=== PATIENT | male | born 1960 | race Hispanic/Latino ===

== ENCOUNTER 2024-10-15 09:50 | Day surgery (SDC) | payer OTHER ==
[2024-10-09 16:42] VITALS: BP 146/77
[~2024-10-15] VITALS: Ht 177.8 cm; Wt 100.0 kg
[~2024-10-15 09:50] MED LIST: ALTOPREV40 MG PO; FARXIGA10 MG PO; FISH OIL 1,0001 EAC6 PO; LISINOPRIL-HCT1 EAC1 PO; TRULICITY0.75 MG/0. SQ
[2024-10-15] MEDS ORDERED: SODIUM CARBONATE1 GM MISC (10:15)
[2024-10-15] MEDS ORDERED: FLOMAX0.4 MG PO (10:16)
[2024-10-15 10:25] VITALS: BP 138/74
[2024-10-15] MEDS ORDERED: GABAPENTIN600 MG PO (10:28)
[2024-10-15 10:36] LABS: BASOPHILS 0.4 % (0-2); BASOPHILS, ABSOLUTE 0 %; EOSINOPHILS, ABSOLUTE 0.1; HEMOGLOBIN 11.6 g/dL (12.0-18.0); LYMPHOCYTES 27.7 % (24-44); LYMPHOCYTES, ABSOLUTE 1.6; MCH 31.8 (27-36); MCV 93.6 fl (81-99); MONOCYTES 5.7 % (0-12); MONOCYTES, ABSOLUTE 0.3; NEUTROPHILS 64.2 % (39-80); NEUTROPHILS, ABSOLUTE 3.7; PLATELET COUNT 249 K/uL (140-440); RBC 3.63 M/ul (4.3-5.7); RDW 13.7 (10.5-15.0)
[2024-10-15 10:52] LABS: ALBUMIN 4.2 g/dL (3.4-5.0); ALBUMIN/GLOBULIN RATIO 1.17 (1.1-2.4); ANION GAP 12.9 (7-21); BILIRUBIN, TOTAL 0.5 mg/dL (0.2-1.0); BUN/CREATININE RATIO 17.47 (6.0-28.6); CALCIUM 9.3 mg/dL (8.5-10.1); CREATININE, SERUM 2.46 mg/dL (0.70-1.30); POTASSIUM 4.9 mmol/L (3.5-5.1); PROTEIN, TOTAL 7.8 g/dL (6.4-8.2)
[2024-10-15] MEDS ORDERED: propofoL 200 MG/20 ML VIAL ONE ×2 (11:59→12:06)
[2024-10-15] MEDS ORDERED: LIDOCAINE HCL 2% 5 ML SDV ONE (11:59)
[2024-10-15 12:52] VITALS: BP 114/63
--- NOTE | 2024-10-15 13:24 | NUR ---
10/15/24 1324 Lisa Rivas 1222 PT ARRIVED IN PACU PRONE WITH NO C/O'S. 1245 REPOSITIONED TO BACK AND SITTING UP IN BED SIPPING ON CRANBERRY JUICE. NO C/O'S. 1300 GETTING DRESSED WITH STAND BY ASSIST. 1305 DC INSTRUCTIONS GIVEN. LAO SPEAKING EMISSIONS ENGINEER USED TO VERIFY INSTRUCTIONS. NO QUESTIONS. LEFT VIA W/C.
[2024-10-16 10:56] LABS: KAPPA QNT FREE LIGHT CHAINS 68.51 mg/L (3.30-19.40); KAPPA/LAMBDA FREE LIGHT CH RAT 1.56 (0.26-1.65); LAMBDA QNT FREE LIGHT CHAINS 43.95 mg/L (5.71-26.30)
[2024-10-16 14:25] LABS: IMMUNOGLOBULIN A 405 mg/dL (68-408); IMMUNOGLOBULIN G 1069 mg/dL (768-1632); IMMUNOGLOBULIN M 65 mg/dL (35-263)
--- NOTE | 2024-10-16 22:33 | EKG ---
[facility] [address] [facility] [place], [place] [address] Signed Sinus bradycardia Otherwise normal ECG Confirmed by Parag Izaguirre MD ([id number]) on 10/16/2024 10:33:34 PM Electronically Signed By: PARAG IZAGUIRRE MD 10/16/242232 PATIENT NAME: HANNAH CAAL LA PAZANTONY Electrocardiogram DATE OF : 56 PHYSICIAN: PARAG IZAGUIRRE MD REPORT #: [id number] REPORT IS CONFIDENTIAL AND NOT TO BE RELEASED WITHOUT AUTHORIZATION
[2024-10-20 11:05] LABS: ALBUMIN 4.26 g/dL (3.75-5.01); ALPHA 1 GLOBULIN 0.24 g/dL (0.19-0.46); ALPHA 2 GLOBULIN 0.77 g/dL (0.48-1.05); BETA GLOBULIN 0.84 g/dL (0.48-1.10); IMMUNOFIXATION REFLEX IFE Done (()); TOTAL PROTEIN,SERUM 7.4 g/dL (6.3-8.2)
--- NOTE | 2024-10-27 15:34 | PATH ---
[facility] [address] [place], [place] [address] Signed THIS IS AN ADDENDUM REPORT SPECIMEN(S): A BONE MARROW - CORE SPECIMEN(S): B BONE MARROW - ASPIRATION SPECIMEN(S): C FLOW CYTOMETRY, BM EDTA1 CLINICAL HISTORY: 64-year-old male with anemia, chronic kidney disease, and SPEP + for IgA-kappa DIAGNOSIS SUMMARY: Peripheral blood - Normocytic anemia. - No circulating blasts or plasma cells are identified. Bone marrow biopsy and aspiration: - Hypercellular marrow, 50%, with less than 1% blasts. - Trilineage hematopoiesis with erythroid hyperplasia with no significant dyspoiesis. - 3% kappa restricted plasma cells consistent with plasma cell neoplasm, favor MGUS. - Congo Red stain is negative for amyloid. - See diagnostic comment. DIAGNOSTIC COMMENT: 3% kappa restricted plasma cells are present consistent with a plasma cell neoplasm. Correlation with laboratory, imaging, and clinical findings is required to accurately subclassify the plasma cell neoplasm. However, a MGUS is favored. The FISH panel for myeloma is abnormal. Chromosome analysis is pending at the time of this report. HISTORICAL SUMMARY: 64 yo male with no prior hematology case history in the [employer] database. He presents with CKD and a SPEP positive for IgA-Jonesburg M-spike (level reportedly 0.3 gm/dl). The bone marrow is to evaluate for a possible plasma cell neoplasm. PERIPHERAL BLOOD: HEMOGRAM (10/15/2024): WBC 5.8 K/ul, RBC 3.63 M/ul, HGB 11.6 g/dl, HCT 34.0%, MCV 93.6 fl, MCH 31.8 pg, MCHC 34.0 g/dl, RDW 13.7%, PLT 249 K/ul, MPV 8.0 fl. AUTOMATED DIFFERENTIAL COUNT: Neutrophils 64.2%, lymphocytes 27.7%, monocytes 5.7%, eosinophils 2.0%, basophils 0.4%. The red blood cells are normocytic and normochromic with minimal PATIENT NAME: ANTONY MEAD PATHOLOGY DATE OF : 56 REPORT #: [id number] PHYSICIAN: TED OLIVEIRA PCP: IMELDA COON MD REPORT IS CONFIDENTIAL AND NOT TO BE RELEASED WITHOUT AUTHORIZATION [facility] [address] [place], [place] [address] Signed aniso-poikilocytosis. The neutrophils are unremarkable. Lymphocytes are composed of small mature appearing forms. Platelets appear normal in number and morphology with no platelet clumping or RBC microangiopathic effect identified. No blasts are identified. BONE MARROW: ASPIRATE SMEARS/TOUCH IMPRINT: The aspirate smears are adequate for evaluation. Scattered erythroid precursors show adequate maturation with essentially normal morphology. The myeloid precursors show full maturation with unremarkable morphology. There is no increase in blasts. Megakaryocytes are identified with a normal morphology. BONE MARROW DIFFERENTIAL COUNT (300 cells): Blasts less than 1%. promyelocytes less than 1%, myelocytes 5%, metamyelocytes/bands/segs 25%, erythroid precursors 45%, lymphocytes 11%, monocytes 4%, eosinophils 7%, plasma cells 3%. M:E ratio: Inverted at 0.8:1 BONE MARROW CORE BIOPSY/ASPIRATE CLOT/CELL BLOCK: The aspirate clot section and the core biopsy are adequate for evaluation. The core biopsy demonstrates unremarkable trabecular bone. The cellularity is increased for age, estimated at 50%. The erythroid precursors are increased in numbers with essentially unremarkable maturation. The myeloid precursors are unremarkable with no significant dyspoiesis. Plasma cells are mildly increased at 3%. Blasts are not increased. Megakaryocytes appear normal in number and in morphology. No granulomas, atypical lymphoid aggregates or foreign malignant cells are detected. SPECIAL STAINS (with adequate controls): - iron (aspirate smear): Marrow iron stores appear decreased by Prussian Blue stain. No ring sideroblasts are identified. - iron (cell block): Negative for iron by Prussian Blue stain. - Congo Red for amyloid (block A1): Negative for amyloid IMMUNOHISTOCHEMISTRY STAINS (performed on block A1 with adequate controls). - CD138: 3% - RAFA [place] and Lambda: [place] light chain restriction. - PAX5: 1% - CD3: 5% FLOW CYTOMETRY: Bone marrow, flow cytometry: - 0.6% plasma cells with cytoplasmic kappa light chain restriction, consistent with a plasma cell neoplasm. - See comment. PATIENT NAME: ANTONY MEAD PATHOLOGY DATE OF : 56 REPORT #: [id number] PHYSICIAN: TDE PATHOLOGY PCP: IMELDA COON MD REPORT IS CONFIDENTIAL AND NOT TO BE RELEASED WITHOUT AUTHORIZATION [facility] [address] [facility] [place], [place] [address] Signed COMMENT: 0.6% of all analyzed cells are plasma cells with cytoplasmic kappa light chain restriction. These plasma cells are positive for CD138, CD56, and CD117. There was no significant expression of CD19 or CD20. This finding is consistent with a plasma cell neoplasm. Correlation with bone marrow findings is required. Blasts are not increased. No clonal lymphoid population is detected. The myeloid and monocytic lineages are unremarkable. FLOW CYTOMETRY ANALYSIS: FLOW DIFFERENTIAL (% Total CD45 vs. SSC gating): Myeloid 71%; Lymphoid 10%; Monocyte 2%; Dim CD45/Blast: 0.9%. Cell Count: 9.0 x 10*3/uL. POPULATION ANALYSIS: BLASTS: Analysis of the dim CD45 gate demonstrates 0.9% myeloblasts by CD34/CD117 and 0.8% hematogones. LYMPHOID CELLS: The lymphocyte gate comprises 10% of total events and includes 62% T-cells with a CD4:CD8 ratio of 1.7:1 and normal luciano T-cell antigen expression. 12% of lymphocytes are polyclonal B-cells with a kappa:lambda ratio of 1.7:1. The remainders are NK-cells. MYELOID CELLS: The myeloid population comprises 71% of the total events. No aberrant immunophenotypic expression is detected. MONOCYTES: The monocyte population comprises 2% of the total events. Monocytes are not increased. No aberrant immunophenotypic expression is detected. PLASMA CELLS: A clinical history of MGUS is noted. For this reason, select additional antibodies are run to further characterize the plasma cells. 0.6% ckappa-restricted plasma cells are detected (n=288) expressing CD45 DIM, CD38 MOD-BR, CD138 MOD, CD56 MOD, CD117 DIM, and cKAPPA BR while negative for CD19 and CD20. A background polyclonal plasma cell population is also detected (0.4% of total events, n=215) expressing CD19 with a ckappa:clambda ratio of 1.6:1. Initial Antibodies Used: KAPPA, LAMBDA, CD20, CD10, CD19, CD23, CD38, CD16, CD56, CD8, CD5, CD2, CD4, CD7, CD3, CD14, CD33, CD13, HLADR, CD34, CD117, CD15, CD45. Additional Antibodies (necessary for further plasma cell analysis): ckappa, clambda, CD138. Total Antibodies Used: 26. JNB FINAL DIAGNOSIS PERFORMED BY: David Sharma MD, Oct 16 2024 4:41PM CYTOGENETICS: PATIENT NAME: ANTONY MEAD PATHOLOGY DATE OF : 56 REPORT #: [id number] PHYSICIAN: TED PATHOLOGY PCP: IMELDA COON MD REPORT IS CONFIDENTIAL AND NOT TO BE RELEASED WITHOUT AUTHORIZATION [facility] [address] [place], [place] [address] Signed Chromosome analysis is pending. FISH ANALYSI/S: Bone marrow, MM FISH (fluorescence in situ hybridization) RESULT: Detected INTERPRETATION: 1q gain: Not detected 1p deletion: Not detected Chromosome 5, 9, or 15 gain: Detected 13q deletion: Not detected 17p (p53) deletion: Not detected, Other Abnormality Observed (See Below) CCND1/IGH rearrangement t(11;14): Not detected, Other Abnormality Observed (See Below) Fluorescence in situ hybridization (FISH) analysis was performed using a multiple myeloma specific set of probes. Plasma cell enrichment was performed unless otherwise noted. This study revealed a gain of chromosome 5 (3-4A, 19%, normal < 4.6%), gain of chromosome 9 (3G, 19%, normal < 4.6%), gain of 11q (3R2G, 12.7%, normal < 8.6%), gain of chromosome 15 (3-5R, 19%, normal < 4.6%) and a gain of chromosome 17 (3R3G, 15%, normal < 3.0%). The other analysis fell within normal limits for this sample type. This finding represents an ABNORMAL result. There is no evidence for CCND1/IGH fusion, no evidence for deletion of 13q or 17p or aneuploidy of chromosomes 1q (CKS1B) or 13 in this specimen. Hyperdiploid cell clones are recurrent findings in patients with Multiple Myeloma which constitute a unique genetic subtype of MM associated standard risk. The most commonly gained chromosomes are 3, 5, 7, 9, 11, 15 and 19. Chromosomal hyperdiploidy is the defining genetic signature in 40-50% of myeloma (MM) patients. Please correlate with clinical and pathologic findings for full assessment. This analysis is not quantitative. Results obtained using CD138+ plasma cells are NOT sales representatives of the percentage of abnormal plasma cells in the aspirate. This analysis is limited to abnormalities detectable by the specific probes included in the study. FISH results should be interpreted within the context of a full cytogenetic analysis and hematologic evaluation. ISCN: Probe Set Detail: Chromosome 1: nuc rafa 1p32.3(GDVE7Cn2),1q21.3(LOS9Eh3)[100] Chromosome 5: nuc rafa 5p12(MDH1s42)[] Chromosome 9: nuc rafa 9p13.1p13.2(CEP9x3)[] Chromosome 15: nuc rafa 15q11.2(BGU02p86)[] PATIENT NAME: ANTONY MEAD PATHOLOGY DATE OF : 56 REPORT #: [id number] PHYSICIAN: TED PATHOLOGY PCP: IMELDA COON MD REPORT IS CONFIDENTIAL AND NOT TO BE RELEASED WITHOUT AUTHORIZATION [address] [place] [address] Signed Chromosome 13: nuc rafa 13q14(P87W712r5),13q34(TQNJ4s0)[100] Chromosome 17: nuc rafa 17p13.1(TP53x3),17p11.2(DKS26e4)[15/100] CCND1/IGH t(11;14): nuc rafa 11q13(QLRS9w1),14q32(IGHx2)[19/150] References: Sandhya AdkinsJ, Chelsea A, et al; International Myeloma Working Group. IMWG consensus on risk stratification in multiple myeloma. Leukemia. 2014;28(2):269-77. Jhon R, Capo PL, Chika J, Candie J, Larry N, Jack AK, Kenroy G, Kervin B, David M, Griffin S, Tee A, Geni B, Perico WM, Kane P, Margaret F, Morse-Calin S, Sahara BG, Ashly R, Nacho O, Reaidee T, Amos L, Lexie H; International Myeloma Working Group. International Myeloma Working Group molecular classification of multiple myeloma: spotlight review. Leukemia. 2009 Dec;23(12):2210-21. doi: 10.1038/uyen.2009.174. Epub 2008Apr 22. PMID: 04283422; PMCID: [id number]. FISH Analysis Summary: Nuclei Scored: 100-150 Scoring Method: Manual; CPT Code 77303 Number of Probe units: 5 Multiplex Cells analyzed: Interphase Probe sets: 13q-/-13, 1p32.3/1q21, 5p12/9p13/15q11, TP53 (17p13.1)/ CEP 17 (17p11), IGH (14q32)/CCND1 (11q13.3) GROSS DESCRIPTION: Two specimens are received in two containers. A. The specimen, labeled and designated "Woo Watkins, bone marrow core biopsy," is received in formalin and consists of a red-quinteros core of bone (2.4 cm in length by up to 0.2 cm in diameter). The specimen is submitted entirely in cassette (A1) following decalcification in Immunocal. B. The specimen, labeled and designated "Woo Watkins, bone marrow clot biopsy," is received in formalin and consists of a portion of red-brown clot-like material (2.3 x 1.0 x 0.3 cm in aggregate). The specimen is submitted entirely in cassette (B1). VB (under the direct supervision of a pathologist) The Gross Description was prepared using a voice recognition system. The report was reviewed for accuracy; however, sound-alike word errors, addition and/or deletions may occur. If there is any question about this report, please contact Client Services. ADDITIONAL NOTES: PATIENT NAME: ANTONY MEAD PATHOLOGY DATE OF : 56 REPORT #: [id number] PHYSICIAN: TED PATHOLOGY PCP: IMELDA COON MD REPORT IS CONFIDENTIAL AND NOT TO BE RELEASED WITHOUT AUTHORIZATION [facility] [address] [facility] [place], [place] [address] Signed Immunohistochemical and/or in situ hybridization studies if performed in this case included appropriate positive controls that reacted as expected. This test was developed and its performance characteristics determined by [facility]. It has not been cleared or approved by the U.S. Food and Drug Administration. The FDA has determined that such clearance or approval is not necessary. This test is used for clinical purposes. It should not be regarded as investigational or for research. [facility] is certified under the Clinical Laboratory Improvement Amendments of 1988 (CLIA) as qualified to perform high complexity clinical laboratory testing. In this case, certain antibodies were performed by both immunohistochemistry and flow cytometry analysis because flow cytometry analysis did not fully explain all the light microscopic findings. Immunohistochemistry aided in the analysis. Both methods are deemed medically necessary in this case. This test was developed and its performance characteristics determined by [facility] It has not been cleared or approved by the US Food and Drug Administration. The Oligo DNA probe vendor for this study was [employer]. This test was developed and its performance characteristics determined by [facility]. It has not been cleared or approved by the US Food and Drug Administration. The FDA does not require this test to go through premarket FDA review. This test is used for clinical purposes. It should not be regarded as investigational or for research. This laboratory is certified under the Clinical Laboratory Improvement Amendments (CLIA) as qualified to perform high complexity clinical laboratory testing. PERFORMING LABORATORY: The technical preparation was performed by [facility], [address] [facility] [place] [address] (CLIA#: [id number]). Professional interpretation was performed by [facility] - [facility], [address] [place] [phone] (CLIA#: [id number]). The technical component of the FISH testing was performed by [facility], [address] [place] [address] (CLIA#: [id number]). Professional interpretation was performed by [facility] - [facility], [address] [facility] [place] [address] (CLIA#: [id number]). FINAL DIAGNOSIS OF FISH ANALYSIS PERFORMED BY: Flaca Weldon MD, PATIENT NAME: ANTONY MEAD PATHOLOGY DATE OF : 56 REPORT #: [id number] PHYSICIAN: [facility] PCP: IMELDA COON MD REPORT IS CONFIDENTIAL AND NOT TO BE RELEASED WITHOUT AUTHORIZATION [facility] [address] [place] [address] Signed Pathologist Oct 23 2024 8:52AM Technical component was performed by [facility], [address] [place] [address] (CLIA# [id number]). Professional interpretation was performed by [facility] - [facility], [address] [place] [id number] (CLIA#: [id number]). IMAGES: A: [id number] A: [id number] C: CCND1-IGH 3R2G_001 C: [id number] 3R3G_001 C: CEP5-9-15 [id number] REASON FOR ADDENDUM: To report results of additional testing. Bone marrow, cytogenetics chromosome analysis: Karyotype: 46,XY[20] Interpretation: NORMAL KARYOTYPE Cytogenetic analysis shows a normal male karyotype in all cells analyzed. Comments: Standard cytogenetic analysis may not detect subtle submicroscopic rearrangements and may not include metaphases from abnormal cell populations with low mitotic rates or present in low levels. Test Detail: Metaphases Counted: 20 Metaphases Analyzed: 20 Metaphases Karyotyped: 2 Culture Type: 48EB, 72IL4 Banding Technique: GTG Banding Resolution: 400 CPT Codes: 41018, 52236*, 89076, 02153 *Professional interpretation service generally billed directly to carriers by [facility]. Two cultures were performed; stimulated and non-stimulated. The Accessioning Component and Technical Component Processing of this test was completed at [facility] [place], [address] [place] [address] / [address] / [phone] / CLIA # [id number] / Patient Safety Manager(s): Fabien Bowen M.D. The Technical Component Analysis of this test was completed at [facility] , [address] [place], [place] / [address] / [phone] / CLIA PATIENT NAME: ANTONY MEAD PATHOLOGY DATE OF : 56 REPORT #: [id number] PHYSICIAN: TED PATHOLOGY PCP: IMELDA COON MD REPORT IS CONFIDENTIAL AND NOT TO BE RELEASED WITHOUT AUTHORIZATION [facility] [address] [place] [address] Signed # [id number] / Patient Safety Manager(s): Ilda Zamora MD. The Professional Component of this test was completed at [facility], [address] [place] [address], [address], [place] / [address] / [phone] / CLIA # [id number] / Patient Safety Manager(s): Edel Hilario M.D. and [facility], [address] [place] [address], [place] / [address] / [phone] / CLIA # [id number] / Patient Safety Manager(s): Fabien Bowen M.D. Analysis Code(s): GSVICPF11 Interpretation Code(s): [id number] (Accession / CaseNo: [id number] / [id number]) The performance characteristics of this test have been determined by the performing laboratory. This test has not been approved by the FDA. The FDA has determined such clearance or approval is not necessary. This laboratory is CLIA certified to perform high complexity clinical testing. Images that may be included within this report are sales representatives of the patient but not all testing in its entirety and should not be used to render a result. The CPT codes provided with our test descriptions are based on AMA guidelines and are for informational purposes only. Correct CPT coding is the sole responsibility of the billing democrat. Please direct any questions regarding coding to the payer being billed. Diagnostician: David Sharma MD Pathologist Diagnostician: Ke Ndiaye MD Pathologist Electronically Signed 10/27/2024 Copies: ~ PATIENT NAME: ANTONY MEAD PATHOLOGY DATE OF : 56 REPORT #: [id number] PHYSICIAN: TED PATHOLOGY PCP: IMELDA COON MD REPORT IS CONFIDENTIAL AND NOT TO BE RELEASED WITHOUT AUTHORIZATION
== END 2024-10-15 13:05 | disposition home or self-care (01) ==
LOC: DS 09:50 → OPS 09:50 → DS 12:00 → OPS 13:05
PROVIDERS: ATTEND Specialist
PROC: 079T3ZX Drainage of Bone Marrow, Percutaneous Approach, Diagnostic (ICD-10-PCS; 2024-10-15)
PROC: 07DR3ZX Extraction of Iliac Bone Marrow, Percutaneous Approach, Diagnostic (ICD-10-PCS; principal; 2024-10-15 12:00)
DX: D47.2 Monoclonal gammopathy (principal); D64.9 Anemia, unspecified; I10 Essential (primary) hypertension; E11.29 Type 2 diabetes mellitus with other diabetic kidney complication; M21.371 Foot drop, right foot; Z87.891 Personal history of nicotine dependence
CPT/HCPCS: 01112; 80053; 83615; 85025; 87631; 93005; 93010; J2003; J2704